=== PATIENT | male | born 1990 | race Caucasian/White ===

== ENCOUNTER 2019-01-19 19:43 | Emergency (ER) | payer OTHER ==
[2019-01-19] MEDS ORDERED: ACETAMINOPHEN 325 MG TABLET (FP) PO ONE (19:52)
--- NOTE | 2019-01-19 19:52 | PDOC ---
Rapid Medical Evaluation Time Seen by Provider: 01/19/19 19:50 Medical Evaluation: Allergies Allergy/AdvReac Type Severity Reaction Status Date / Time No Known Allergies Allergy Verified 11/23/16 13:43 01/19/19 19:50 I have performed a brief in-person evaluation of this patient. The patient presents with a chief complaint of: Sore throat w/ cough, body aches , malaise, f/c since last night. No known sick contacts or recent travel. No pmhx Pertinent physical exam findings:T 102 F, HR 105 I have ordered the following:flu swab sent, tylenol The patient will proceed to the ED for further evaluation. 01/19/19 19:53 Discharge Disposition - Diagnosis Viral syndrome - Referrals - Patient Instructions - Post Discharge Activity
[2019-01-19 19:54] VITALS: BP 124/84; PULSE 105; TEMP 102.8; BMI 29.7
[2019-01-19] MEDS ORDERED: IBUPROFEN 600 MG TABLET (FP) PO ONE ×2 (21:06→21:08)
--- NOTE | 2019-01-19 21:07 | PDOC ---
History of Present Illness - General Chief Complaint: Cold Symptoms Stated Complaint: FLU SYMPTOMS Time Seen by Provider: 01/19/19 19:50 History Source: Patient Exam Limitations: No Limitations - History of Present Illness Initial Comments: 01/19/19 21:04 HISTORY OF PRESENT ILLNESS: 28-year-old male presents emergency Department with fevers, chills, moist productive cough, sore throat and body aches for the past 3 days. Patient reports he fell asleep duodenitis taking a shower with the window open and is concerned that he may have pneumonia. Patient denies any sick contacts. No recent travel or sick contacts. PAST MEDICAL HISTORY: Denies past medical history SURGICAL HISTORY: Denies ALLERGIES: No known drug allergies REVIEW OF SYSTEMS General/Constitutional: +fever. Denies weakness, weight change. HEENT: Denies change in vision. Denies ear pain or discharge. +sore throat. Cardiovascular: Denies chest pain or shortness of breath. Respiratory: Moist productive cough. Denies wheezing, or hemoptysis. Gastrointestinal: Denies nausea, vomiting, diarrhea or constipation. Denies rectal bleeding. Genitourinary: Denies dysuria, frequency, or change in urination. Musculoskeletal: +myalgias. Denies neck or back pain. Skin and breasts: Denies rash or easy bruising. Neurologic: Denies headache, vertigo, loss of consciousness, or loss of sensation. Psychiatric: Denies depression or anxiety. Endocrine: Denies increased thirst. Denies abnormal weight change. Hematologic/Lymphatic: Denies anemia, easy bleeding, or history of blood clots. Allergic/Immunologic: Denies hives or skin allergy. Denies latex allergy. PHYSICAL EXAM General Appearance: Well-appearing, appropriately dressed. No apparent distress , no intoxication. HEENT: EOMI, PERRLA, normal voice, TMs retracted bilaterally. No conjunctival pallor. No photophobia, scleral icterus. Oropharynx erythematous without lesions or exudate. Cobblestoning noted in the posterior. No nasal discharge present. Neck: Supple. Trachea midline. No tenderness, rigidity, carotid bruit, stridor , or thyromegaly. Nontender anterior cervical lymphadenopathy present. Respiratory/Chest: Lungs CTAB. No shortness of breath, chest tenderness, respiratory distress, accessory muscle use. No crackles, rales, rhonchi, stridor , wheezing, dullness Cardiovascular: RRR. S1, S2. No JVD, murmur, bradycardia, tachycardia. Vascular Pulses: Dorsalis-Pedis (R): 2+, Dorsalis-Pedis (L): 2+ Gastrointestinal/Abdominal: Normal bowel sounds. Abdomen soft, non-distended. No tenderness or rebound tenderness. No organomegaly, pulsatile mass, guarding, hernia, hepatomegaly, splenomegaly. Musculoskeletal/Extremities: Normal inspection. FROM of all extremities, normal capillary refill. Pelvis Stable. No CVA tenderness. No tenderness to extremities, pedal edema, swelling, erythema or deformity. Integumentary: Appropriate color, dry, warm. 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 Fully oriented, alert. Appropriate mood/affect. Motor strength 5/5. No appreciable EOM palsy, facial droop or sensory deficit. Past History - Past Medical History Allergies/Adverse Reactions: Allergies Allergy/AdvReac Type Severity Reaction Status Date / Time No Known Allergies Allergy Verified 11/23/16 13:43 Home Medications: Ambulatory Orders NK [No Known Home Medication] 11/23/16 CVA: No COPD: No - Suicide/Smoking/Psychosocial Hx Smoking History: Current some day smoker Have you smoked in the past 12 months: Yes Number of Cigarettes Smoked Daily: 1 Information on smoking cessation initiated: No 'Breaking Loose' booklet given: 12/16/15 Hx Alcohol Use: No Drug/Substance Use Hx: No Substance Use Type: None Hx Substance Use Treatment: No *Physical Exam - Vital Signs Last Vital Signs Temp Pulse Resp BP Pulse Ox 102.8 F H 105 H 18 124/84 96 01/19/19 19:51 01/19/19 19:51 01/19/19 19:51 01/19/19 19:51 01/19/19 19:51 Moderate Sedation - Procedure Monitoring Vital Signs: Procedure Monitoring Vital Signs Temperature 102.8 F H 01/19/19 19:51 Pulse Rate 105 H 01/19/19 19:51 Respiratory Rate 18 01/19/19 19:51 Blood Pressure 124/84 01/19/19 19:51 O2 Sat by Pulse Oximetry (%) 96 01/19/19 19:51 ED Treatment Course - Medications Given in the ED: ED Medications Discontinued Medications Generic Name Dose Route Start Last Admin Trade Name Freq PRN Reason Stop Dose Admin Acetaminophen 650 mg 01/19/19 19:52 01/19/19 20:15 Tylenol - PO 01/19/19 19:53 650 mg ONCE ONE Administration Medical Decision Making - Medical Decision Making 01/19/19 21:04 A/P: 28-year-old male with 2 days of influenza-like illness Influenza testing performed that rapid medical evaluation is negative. Patient remains febrile after taking Tylenol. Chest x-ray Motrin 600 mg orally Reassess 01/19/19 22:01 Chest x-rays read by me: Angles clear. Cardiac silhouette is within normal limits. No focal infiltrates or consolidations present. Discharge patient home I discussed the physical exam findings, ancillary test results and final diagnoses with the patient. I answered all of the patient's questions. The patient was satisfied with the care received and felt comfortable with the discharge plan and treatment plan. The patient will call their primary care physician within 24 hours to arrange follow-up and will return to the Emergency Department with any new, persistent or worsening symptoms. *DC/Admit/Observation/Transfer Diagnosis at time of Disposition: Viral syndrome - Discharge Dispostion Disposition: HOME Condition at time of disposition: Stable Decision to Admit order: No - Referrals Referrals: Sara Torres MD [Primary Care Provider] - - Patient Instructions Printed Discharge Instructions: DI for Viral Upper Respiratory Infection -- Adult Additional Instructions: Rest, drink lots of fluids: Teas, water, soups, Pedialyte Saltwater gargles Steamy showers/seem to face break up mucus Avoid contact with others until fevers and cough resolved Lots of handwashing and good hygiene Continue [id number] medications for symptomatic relief Tylenol or Motrin for fever and pain Followup with private physician in one to 2 days as needed Return to emergency department for worsened symptoms, fevers, dehydration - Post Discharge Activity
== END 2019-01-19 22:06 | disposition home or self-care (01) ==
LOC: JERFT 19:43
DX: B97.89 Other viral agents as the cause of diseases classified elsewhere (principal)
CPT/HCPCS: 71046-TC-FY; 87804; 99281-25

== ENCOUNTER 2019-04-11 15:16 | Emergency (ER) | payer OTHER ==
[2019-04-11 15:31] VITALS: BP 124/85; PULSE 103; TEMP 99.8; BMI 28.8
[2019-04-11] MEDS ORDERED: DEXAMETHASONE 4 MG TABLET (FP) PO STA (15:37)
[2019-04-11] MEDS ORDERED: DEXAMETHASONE 4 MG TABLET (FP) ONE (15:46)
[2019-04-11] MEDS ORDERED: DEXAMETHASONE LIQUID 0.5 MG/5 ML 240 ML BULK BOTTLE PO STA (15:48)
[2019-04-11] MEDS ORDERED: DEXAMETHASONE SOD PHOSPHATE 4 MG/1 ML VIAL ONE (15:49)
--- NOTE | 2019-04-11 16:03 | PDOC ---
History of Present Illness - General Chief Complaint: Cold Symptoms Stated Complaint: COLD SYMPTOMS Time Seen by Provider: 04/11/19 15:20 History Source: Patient Exam Limitations: No Limitations - History of Present Illness Initial Comments: Patient is a 28-year-old male who states that he has had a sore throat and nasal congestion 1 week. Patient admits to chills however denies fever at home. No antipyretics taken prior to arrival. Denies sick contacts or recent travel. He describes the pain as sore and rates it at a 7 out of 10. Patient denies lymphadenopathy. He denies any aggravating or relieving factors. 04/11/19 16:01 Past History - Travel Traveled outside of the country in the last 30 days: No Close contact w/someone who was outside of country & ill: No - Past Medical History Allergies/Adverse Reactions: Allergies Allergy/AdvReac Type Severity Reaction Status Date / Time No Known Allergies Allergy Verified 04/11/19 15:32 Home Medications: Ambulatory Orders NK [No Known Home Medication] 11/23/16 CVA: No COPD: No - Immunization History Immunization Up to Date: Yes - Suicide/Smoking/Psychosocial Hx Smoking History: Current some day smoker Have you smoked in the past 12 months: Yes Number of Cigarettes Smoked Daily: 1 Information on smoking cessation initiated: No 'Breaking Loose' booklet given: 12/16/15 Hx Alcohol Use: No Drug/Substance Use Hx: No Substance Use Type: None Hx Substance Use Treatment: No Review of Systems - Review of Systems Able to Perform ROS?: Yes Constitutional: Yes: Chills. No: Fever HEENTM: Yes: Throat Pain. No: Throat Swelling, Difficulty Swallowing, Mouth Swelling Respiratory: No: Cough Cardiac (ROS): No: Chest Pain *Physical Exam - Vital Signs Last Vital Signs Temp Pulse Resp BP Pulse Ox 99.8 F H 103 H 17 124/85 97 04/11/19 15:24 04/11/19 15:24 04/11/19 15:24 04/11/19 15:24 04/11/19 15:24 - Physical Exam Comments: Constitutional: VS stated, pt appears in no apparent distress; sitting in chair. Skin: Warm and dry. Intact, no lesions or excoriations. Head: Normocephalic; atraumatic Eyes: conjunctiva pink without injection or discharge. Ears: No tenderness present. Canals without injection or discharge; TM clear, no retractions or bulging. Nose: Patent, mucosa pink. No drainage. Sinuses: No tenderness over frontal and maxillary sinuses. Throat: Oropharynx with pink and moist mucosa. Dentition good. No pharyngeal edema; erythema or exudate. Tongue normal, no fasciculations. Airway Patent. Hypoglossal area is soft. Uvula is midline. No trismus. Neck: Supple, non-tender, with full ROM, trachea midline, no anterior/posterior cervical chain lymphadenopathy, thyroid nonpalpable. No stridor or bruits. Chest: Normal AP diameter, symmetrical excursions bilaterally, no retractions or bulging of the intercostal spaces. No pain or tenderness noted on palpation. Lungs: Bilateral breath sounds clear upon auscultation. No adventitious breath sounds. Heart: Tachy, however, I think this is due to a low grade fever. S1/S2 auscultated. No murmurs, rubs, or gallops. No visible pulsations, heaves, or lifts on precordium. Abdomen: Soft and non-tender. Musculoskeletal: Moves all extremities without difficulty. Neurologic: Awake, alert. Conversation fluent. 04/11/19 16:02 ED Treatment Course - Medications Given in the ED: ED Medications Discontinued Medications Generic Name Dose Route Start Last Admin Trade Name Yonatanq PRN Reason Stop Dose Admin Dexamethasone 10 mg 04/11/19 15:37 04/11/19 15:48 Decadron - PO 04/11/19 15:38 Not Given NOW STA Dexamethasone 10 mg 04/11/19 15:48 04/11/19 15:51 Decadron Liquid - PO 04/11/19 15:49 2.5 ml ONCE STA Administration Medical Decision Making - Medical Decision Making 04/11/19 16:03 Pt's RBS was negative Pt's Influenza was negative Pt was given Decadron 10 mg PO. 04/11/19 16:18 *DC/Admit/Observation/Transfer Diagnosis at time of Disposition: Acute pharyngitis Qualifiers: Pharyngitis/tonsillitis etiology: other specified organisms Qualified Code(s): J02.8 - Acute pharyngitis due to other specified organisms - Discharge Dispostion Disposition: HOME Condition at time of disposition: Good - Referrals - Patient Instructions Printed Discharge Instructions: How to Avoid a Cold or Flu Additional Instructions: Use Chloraseptic spray or warm saltwater gargles. Throw out toothbrush and replace with new. Avoid acidic beverages and spicy foods. Follow-up with your family doctor. - Post Discharge Activity Forms/Work/School Notes: Back to Work
== END 2019-04-11 16:32 | disposition home or self-care (01) ==
LOC: JERFT 15:16
DX: J02.8 Acute pharyngitis due to other specified organisms (principal); F17.210 Nicotine dependence, cigarettes, uncomplicated
CPT/HCPCS: 87070; 87804; 87880; 99281-25

== ENCOUNTER 2021-06-17 15:42 | Emergency (ER) | payer OTHER ==
[2021-06-17 16:02] VITALS: BP 100/56; PULSE 77; TEMP 98.3; BMI 27.5
[2021-06-17] MEDS ORDERED: DIPHTH,PERTUSS(ACELL),TET 0.5 ML DISP.SYRIN IM ONE ×2 (16:32→17:12)
== END 2021-06-17 17:19 | disposition home or self-care (01) ==
LOC: JERFT 15:42
PROC: 0HQGXZZ Repair Left Hand Skin, External Approach (ICD-10-PCS; principal; 2021-06-17)
PROC: 3E0234Z Introduction of Serum, Toxoid and Vaccine into Muscle, Percutaneous Approach (ICD-10-PCS; 2021-06-17)
DX: S61.215A Laceration without foreign body of left ring finger without damage to nail, initial encounter (principal)
CPT/HCPCS: 73130-TC-LT-FY; 90715; 99284-25

== ENCOUNTER 2021-06-24 13:06 | Emergency (ER) | payer OTHER ==
[2021-06-24 13:20] VITALS: BP 128/72; PULSE 78; TEMP 98.2; BMI 32.3
== END 2021-06-24 13:35 | disposition home or self-care (01) ==
LOC: JERFT 13:06 → JER 13:06 → JERFT 13:35
DX: Z48.02 Encounter for removal of sutures (principal)
CPT/HCPCS: 99281-25

== ENCOUNTER 2022-11-22 03:15 | Emergency (ER) | payer OTHER ==
[2022-11-22 03:24] VITALS: BP 117/73; PULSE 67; RESP 20; BMI 31.5
[2022-11-22] MEDS ORDERED: DIPHTH,PERTUSS(ACELL),TET 0.5 ML DISP.SYRIN IM ONE ×2 (04:03→06:53)
[2022-11-22] MEDS ORDERED: LIDOCAINE HCL/PF 1% SDV 5ML VIAL ONE (06:27)
[2022-11-22] MEDS ORDERED: ACETAMINOPHEN 500 MG TABLET (FP) PO ONE (07:29)
[2022-11-22] MEDS ORDERED: ACETAMINOPHEN 325 MG TABLET (FP) ONE (07:50)
[2022-11-22] MEDS ORDERED: KETOROLAC TROMETHAMINE 30 MG/1 ML VIAL IVPUSH ONE (08:17)
[2022-11-22] MEDS ORDERED: KETOROLAC TROMETHAMINE 30 MG/1 ML VIAL ONE (08:28)
[2022-11-22] MEDS ORDERED: BACITRACIN 15 GM TUBE TOPICAL OINTMENT ONE (08:31)
== END 2022-11-22 09:13 | disposition home or self-care (01) ==
LOC: JER 03:15
PROC: 3E0234Z Introduction of Serum, Toxoid and Vaccine into Muscle, Percutaneous Approach (ICD-10-PCS; principal; 2022-11-22)
PROC: 3E0333Z Introduction of Anti-inflammatory into Peripheral Vein, Percutaneous Approach (ICD-10-PCS; 2022-11-22)
DX: S01.01XA Laceration without foreign body of scalp, initial encounter (principal); M25.512 Pain in left shoulder; S80.212A Abrasion, left knee, initial encounter; S80.211A Abrasion, right knee, initial encounter; V18.0XXA Pedal cycle driver injured in noncollision transport accident in nontraffic accident, initial encounter
CPT/HCPCS: 36415; 70450-TC; 72125-TC; 73030-TC-LT-FY; 80307; 90471; 90715; 96374; 99285-25